=== PATIENT | female | born 1940 | race Caucasian/White ===

== ENCOUNTER 2016-10-08 08:04 | Outpatient (CLI) | payer MEDICARE ==
[2015-06-25 17:56] VITALS: BMI 21.8
[~2016-10-08 08:04] MED LIST: BAYER CHEWABLE81 MG PO; CALCIUM 600+D T1 TA1 PO; CARDIOTEK RX TA1 TA1 PO; COLACE100 MG PO; CORDARONE200 MG PO; COREG CR20 MG PO; CRESTOR20 MG PO; CYMBALTA60 MG PO; FLEXERIL10 MG PO; FOLTX TABLET1 TAB PO; GLUCOPHAGE500 MG PO; HYDROCHLOROTH12.5 M1 PO; K-DUR20 MEQ PO; LASIX40 MG PO; LATISSE3 ML TP; LISINOPRIL5 MG PO; LOPID600 MG PO; MIRALAX17 GM PO; MULTIPLE VITAMI1 TA1 PO; NEURONTIN 300300 MG PO; NITROSTAT0.4 MG SL; NORVASC10 MG PO; PLAVIX75 MG PO; PROBIOTIC1 EAC1 PO; PROTONIX40 MG PO; SIMBRINZA; VITAMIN C1000 MG PO; ZYLOPRIM100 MG PO
== END 2016-10-08 10:15 ==
LOC: D.MAMMO 08:04
DX: Z12.31 Encounter for screening mammogram for malignant neoplasm of breast (principal)

== ENCOUNTER → 2016-11-10 16:47 | Outpatient (CLI) | payer MEDICARE ==
[2015-06-25 17:56] VITALS: BMI 21.8
== END | disposition home or self-care (01) ==
LOC: D.MAMMO 13:30
DX: R92.8 Other abnormal and inconclusive findings on diagnostic imaging of breast (principal)

== ENCOUNTER 2017-03-08 15:07 | Emergency (ER) | payer MEDICARE ==
[2015-06-25 17:56] VITALS: BMI 21.8
== END 2017-03-08 16:52 | disposition home or self-care (01) ==
LOC: D.ER 15:07
DX: K59.00 Constipation, unspecified (principal); K56.41 Fecal impaction; I10 Essential (primary) hypertension

== ENCOUNTER 2017-08-27 17:41 | Emergency (ER) | payer MEDICARE ==
[~2017-08-27] VITALS: Ht 157.5 cm; Wt 58.6 kg
[2017-08-27 17:51] VITALS: Ht 157.5 cm; Wt 58.6 kg
[2017-08-27 19:28] LABS: BASOPHILS 0.3 % (0-2); HEMATOCRIT 36.5 % (36.0-48.0); HEMOGLOBIN 12.1 g/dL (12-16); IMMATURE GRANULOCYTES 0.4 % (0-5); MCH 30.2 pg (26.0-34.0); MCHC 33.2 g/dL (31.0-37.0); MEAN PLATELET VOLUME 10.6 fL (7.4-10.4); MONOCYTES 11.6 % (2-11); NEUTROPHILS 71.7 % (40-80); RBC 4.01 10x6/uL (4.00-5.40); RDW 13.3 % (11.5-14.5); WBC 6.9 10x3/uL (4.8-10.8)
[2017-08-27 19:29] LABS: PLATELET COUNT 154 10x3/uL (130-400)
[2017-08-27 19:37] LABS: ANION GAP 14.8 mmol/L (8-16); CALCIUM 9.3 mg/dL (8.5-10.1); CARBON DIOXIDE 27.7 mmol/L (21.0-32.0); CREATININE - SERUM 1.5 mg/dL (0.6-1.3); MAGNESIUM - SERUM 2.3 mg/dL (1.8-2.4); POTASSIUM - SERUM 3.5 mmol/L (3.5-5.1)
[2017-08-27 22:02] VITALS: BP 178/65
== END 2017-08-27 22:04 | disposition home or self-care (01) ==
LOC: D.ER 17:41
PROVIDERS: Emergency Medicine
DX: I10 Essential (primary) hypertension (principal); Z86.73 Personal history of transient ischemic attack (TIA), and cerebral infarction without residual deficits; H54.40 Blindness, one eye, unspecified eye; E11.9 Type 2 diabetes mellitus without complications; Z86.79 Personal history of other diseases of the circulatory system

== ENCOUNTER 2017-09-29 12:32 | Emergency (ER) | payer MEDICARE ==
[~2017-09-29] VITALS: Ht 157.5 cm; Wt 58.6 kg
[2017-09-29 12:39] VITALS: Ht 157.5 cm; Wt 58.6 kg
[2017-09-29 15:19] VITALS: BP 126/70
== END 2017-09-29 15:21 | disposition home or self-care (01) ==
LOC: D.ER 12:32
DX: R07.81 Pleurodynia (principal); S01.01XA Laceration without foreign body of scalp, initial encounter; W19.XXXA Unspecified fall, initial encounter; Y93.89 Activity, other specified; Y92.012 Bathroom of single-family (private) house as the place of occurrence of the external cause; M54.6 Pain in thoracic spine; E11.9 Type 2 diabetes mellitus without complications; I10 Essential (primary) hypertension

== ENCOUNTER → 2017-12-30 13:42 | Outpatient (CLI) | payer MEDICARE ==
[2017-09-29 12:39] VITALS: BMI 23.6
== END | disposition home or self-care (01) ==
LOC: D.MRI 13:42
DX: M54.12 Radiculopathy, cervical region (principal)

== ENCOUNTER 2018-03-09 08:00 | Outpatient (CLI) | payer MEDICARE ==
[2017-09-29 12:39] VITALS: BMI 23.6
== END 2018-03-09 09:00 | disposition home or self-care (01) ==
LOC: D.MAMMO 08:00
DX: Z12.31 Encounter for screening mammogram for malignant neoplasm of breast (principal)

== ENCOUNTER 2018-05-10 15:57 | Inpatient (IN) | payer MEDICARE ==
[~2018-05-10] VITALS: Ht 157.5 cm; Wt 59.4 kg
--- NOTE | ~2018-05-10 | HEMODYNAMI ---
PATIENT:JAMIE ANTOINE MEDICAL RECORD: [id number] : 38 LOCATION:[facility] D.2120 ADMISSION DATE: 05/10/18 Generatedon:05/11/201816:03 Patient name: JAMIE ANTOINE Patient #: [id number] SSN: DO B: 1940 Date of study: 05/11/2018 Page: Of Hemodynamic Procedure Report Patient Data Patient Demographics Procedure consent was obtained First Name: JAMIE Gender: Female Last Name: ELINA : 1940 Middle Initial: SARA Age: 78 year(s) Patient #: [id number] Race: Additional ID: [id number] Contact details [address]: [address] [place] [address] State: [place] City: [place] Zip code: [address] Past Medical History Allergies Allergen Reaction Date Comments Reported Other allergy 11/10/2014 Codeine, Morphine, Tape Adhesive tape 05/11/2018 Codeine 05/11/2018 Morphine 05/11/2018 Other allergy 05/11/2018 lisinopril Admission Admission Data Admission Date: 05/10/2018 Admission Time: 15:57 Room #: D.2120 Procedure Procedure Types Cath Procedure Diagnostic Procedure [facility] w/Coronaries Sedation Charges Moderate Sedation up to 15 minutes PCI Procedure Coronary Stent Coronary Stent Initial x2 Procedure Description Procedure Date Procedure Date: 05/11/2018 Procedure Start Time: 15:44 Procedure End Time: 16:03 Procedure Staff Name Function Sanjay Brand MD Performing Physician Marianela Nascimento RT Monitor Sonam Johnson RN Nurse Debi Goetz RT Scrub Nuria Mendez RT Scrub Coleen Jorgensen RN Griddle Attendant Procedure Data Cath Procedure Fluoroscopy Diagnostic fluoroscopy Total fluoroscopy Time: 4.5 time: 4.5 min min Diagnostic fluoroscopy Total fluoroscopy dose: 303 dose: 303 mGy mGy Contrast Material Contrast Material Type Amount (ml) Isovue 370 84 Entry Location Entry Primary Successful Side Size Upsize Upsize Entry Closure Caceres ccessful Closure Location (Fr) 1 (Fr) 2 (Fr) Remarks Device Remarks Radial Right 6 Fr Mechanical artery Short Compression Estimated blood loss: 10 ml Diagnostic catheters Device Type Used For End Catheter Placement DIAGNOSTIC Kemp 110cm 5 LV Angiography Fr catheter ([id number]) DIAGNOSTIC Kemp 110cm 5 Coronary Fr catheter ([id number]) Angiography DIAGNOSTIC Kemp 110cm 5 Right Coronary Fr catheter ([id number]) Angiography Procedure Complications No complications Procedure Medications Medication Administration Route Dosage 0.9% NaCl I.V. 100 ml/hr Oxygen etCO2 Nasal cannula 2 l/min Lidocaine 2% added to field 20 Heparin Flush Bag added to field 2 bags (1000units/500ml NS) Radial Cocktail added to field 1 syringe (Verapomil 2mg/Nitro 400mcg/Heparin 1500units) Versed I.V. 2 mg Fentanyl I.V. 25 mcg Versed I.V. 1 mg Fentanyl I.V. 25 mcg Heparin Bolus I.V. 4000 units Integrilin (Bolus I.V. 5 ml 2mg/ml) Plavix P.O. 600 mg Hemodynamics Rest Heart Rate: 69 (bpm) Snapshots Pre Cath Intra NCS Post Cath Vital Signs Time Heart Resp SPO2 etCO2 NIBP (mmHg) Rhythm Pain Sedation Rate (ipm) (%) (mmHg) Status Level (bpm) 15:11:52 79 14 98 32 188/94(150) NSR 0 (11) 10(A) , No pain 15:17:31 77 10 100 29.9 207/96(147) NSR 0 (11) 10(A) , No pain 15:21:56 67 13 99 32.2 161/80(124) NSR 0 (11) 10(A) , No pain 15:26:18 70 17 98 31.4 154/73(109) NSR 0 (11) 10(A) , No pain 15:30:38 66 17 96 32.6 145/72(113) NSR 0 (11) 10(A) , No pain 15:35:00 67 15 98 28.2 152/70(118) NSR 0 (11) 10(A) , No pain 15:39:24 61 15 97 33.7 153/76(122) NSR 0 (11) 10(A) , No pain 15:43:40 62 14 98 33.7 138/60(103) NSR 0 (11) 10(A) , No pain 15:48:42 70 15 96 12.7 143/67(107) NSR 0 (11) 9(A) , No pain 15:53:04 64 14 98 28.5 139/58(95) NSR 0 (11) 9(A) , No pain 15:57:26 64 13 100 34.4 153/64(114) NSR 0 (11) 10(A) , No pain 16:01:52 60 15 100 34.4 173/70(126) NSR 0 (11) 10(A) , No pain Medications Time Medication Route Dose Verified Delivered Reason Not es Effectiveness by by 15:11:05 0.9% NaCl I.V. 100 Sanjay Coleen used for ml/hr Sunday Jorgensen jewelry drill operator 15:11:13 Oxygen etCO2 2 l/min Sanjay Coleen used for Nasal Sunday Jorgensen procedure cannula RN 15:11:18 Lidocaine 2% added 20ml Sanjay Sanjay for local to vial Sunday Brand MD anesthetic field 15:11:24 Heparin Flush added 2 bags Sanjay Sanjay used for Bag to Sunday Brand MD procedure (1000units/500ml field NS) 15:11:32 Radial Cocktail added 1 Sanjay Sanjay used for (Verapomil to syringe Sunday Brand MD procedure 2mg/Nitro field 400mcg/Heparin 1500units) 15:36:29 Versed I.V. 2 mg Sanjay Coleen for sedation Sunday Jorgensen RN 15:36:41 Fentanyl I.V. 25 mcg Sanjay Coleen for sedation Sunday Jorgensen RN 15:44:16 Versed I.V. 1 mg Sanjay Coleen for sedation Sunday Jorgensen RN 15:44:20 Fentanyl I.V. 25 mcg Sanjay Coleen for sedation Sunday Jorgensen RN 15:51:38 Heparin Bolus I.V. 4000 Sanjay Coleen for martin ified units Sunday Jorgensen anticoagulation with Dr. BESSIE Brand 15:51:51 Integrilin I.V. 5 ml Sanjay Coleen for was melchor (Bolus 2mg/ml) Sunday Jorgensen anticoagulation 5mL RN 15:52:05 Plavix P.O. 600 mg Sanjay Coleen for Sunday Jorgensen antiplatelet RN therapy Procedure Log Time Note 14:40:27 Time tracking: Regular hours (M-F 7:00 - 5:00) 14:40:30 Marianela Counts RT(R) sent for patient. Start room use. 14:40:31 Plan of Care:Hemodynamics will remain stable., Cardiac rhythm will remain stable., Comfort level will be maintained., Respiratory function will remain adequate., Patient/ family verbilizes understanding of procedure., Procedure tolerated without complication., Recovers from procedure without complications.. 14:57:50 Patient received from PCU to CCL 1 Alert and oriented. Tansferred to table in Supine position. 14:57:51 Warm blankets applied, and kristie hugger turned on for patient comfort. 14:57:52 Correct patient and procedure confirmed by team. 14:57:53 Signed procedure consent form obtained from patient. 14:57:53 ECG and BP/O2 sat monitors applied to patient. 15:10:36 Vital chart was started 15:11:05 0.9% NaCl 100 ml/hr I.V. was administered by Coleen Jorgensen RN; used for procedure; 15:11:13 Oxygen 2 l/min etCO2 Nasal cannula was administered by Coleen Jorgensen RN; used for procedure; 15:11:18 Lidocaine 2% 20ml vial added to field was administered by Sanjay Brand MD; for local anesthetic; 15:11:24 Heparin Flush Bag (1000units/500ml NS) 2 bags added to field was administered by Sanjay Brand MD; used for procedure; 15:11:32 Radial Cocktail (Verapomil 2mg/Nitro 400mcg/Heparin 1500units) 1 syringe added to field was administered by Sanjay Brand MD; used for procedure; 15:13:20 Full Disclosure recording started 15:13:23 Rhythm: sinus rhythm 15:14:05 H&P Date Dictated: 05/11/2018 Within 30 days and on chart.. 15:14:06 Pre-procedure instructions explained to patient. 15:14:07 Pre-op teaching completed and patient verbalized understanding. 15:14:09 Family in patients room. 15:14:10 Patient NPO since Midnight. 15:14:19 Patient allergic to Adhesive tape 15:14:25 Patient allergic to Codeine 15:14:31 Patient allergic to Morphine 15:14:45 Patient allergic to Other allergylisinopril 15:14:51 Is the patient allergic to Iodine/contrast media? No. 15:14:56 Is patient on blood thinner?No 15:14:57 Patient diabetic? No. 15:15:01 Previous problem with sedation/anesthesia? No ? 15:15:02 Snore? No 15:15:03 Sleep apnea? No 15:15:04 Deviated septum? No 15:15:05 Opens mouth fully? Yes 15:15:05 Sticks out tongue? Yes 15:15:07 Airway obstruction? No ? 15:15:09 Dentures? No ? 15:16:06 Pre procedure: right dorsailis pedis pulse 2+ Normal; easily identifiable; not easily obliterated 15:16:08 Modified Severino's test Ulnar < 7 seconds 15:16:10 Patient pain scale 0/10 ?. 15:16:16 IV patent on arrival in left forearm with 0.9% NaCl at [facility]. 15:16:19 Lab results completed and on chart. 15:16:24 Right Radial & Right Groin area was prepped with chlora-prep and draped in sterile fashion 15:16:25 Alarms reviewed by R. N. 15:16:25 Sharps counted by scrub and verified by R.N. 15:16:30 ACIST Syringe (33025) opened to sterile field. 15:16:30 Bag Decanter (2002S) opened to sterile field. 15:16:31 Medline Cath Pack ([id number]) opened to sterile field. 15:16:31 DIAGNOSTIC WIRE .035 260cm J wire (329540) opened to sterile field. 15:16:32 ACIST Hand Control (96092) opened to sterile field. 15:16:32 ACIST Manifold (17226) opened to sterile field. 15:16:33 Tegaderm 4 x 4 (1626W) opened to sterile field. 15:24:10 Baseline sample Acquired. 15:31:24 Zero performed for pressure channel P1 15:35:57 Final Timeout: patient, procedure, and site verified with staff and physician. All members of the team are in agreement. 15:36:01 Right Radial site verified by team. 15:36:04 Fire Safety Assessment: A--An alcohol-based skin anteseptic being used preoperatively., C--Open oxygen or nitrous oxide is being used., D--An ESU, laser, or fiber-optic light is being used. 15:36:08 Physical assessment completed. ASA score P 2 - A patient with mild systemic disease as per Sanjay Brand MD. 15:36:11 Sedation plan: IV Moderate Sedation Medication:Versed, Fentanyl 15:36:29 Versed 2 mg I.V. was administered by Coleen Jorgensen RN; for sedation; 15:36:41 Fentanyl 25 mcg I.V. was administered by Coleen Jorgensen RN; for sedation; 15:44:16 Versed 1 mg I.V. was administered by Coleen Jorgensen RN; for sedation; 15:44:20 Fentanyl 25 mcg I.V. was administered by Coleen Jorgensen RN; for sedation; 15:44:21 Procedure started. 15:44:26 Local anesthetic to right radial artery with Lidocaine 2% by Sanjay Brand MD.INITIAL ACCESS ONLY 15:45:06 A 6 Fr Short sheath was inserted into the Right Radial artery 15:45:41 SHEATH 6FR Slender (80-1060) opened to sterile field. 15:46:05 TR BAND Standard ([id number]) opened to sterile field. 15:46:12 A DIAGNOSTIC Kemp 110cm 5 Fr catheter (383533) was advanced over the wire and used for LV Angiography. 15:47:26 LV gram done using DICK 15:47:32 EF : 65 % 15:47:39 Injector settings: Ml/sec: 7, Volume: 15, 15:47:45 A DIAGNOSTIC Kemp 110cm 5 Fr catheter (088659) was advanced over the wire and used for Coronary Angiography. 15:47:48 Use device set TAU PCI 15:47:54 INFLATOR Merit BasixCompak (YD9357) opened to sterile field. 15:47:58 CHOICE PT Extra Support 182cm wire ([id number]) opened to sterile field. 15:48:34 A DIAGNOSTIC Kemp 110cm 5 Fr catheter (197378) was advanced over the wire and used for Right Coronary Angiography. 15:48:51 Catheter removed. 15:49:12 GUIDE 6FR AR 2.0 catheter ([id number]) opened to sterile field. 15:49:39 GUIDE 6FR XB 3.5 catheter ([id number]) opened to sterile field. 15:50:33 6 Fr AR 2.0 guide catheter was inserted over the wire 15:50:41 CHOICE PT ES wire advanced. 15:51:38 Heparin Bolus 4000 units I.V. was administered by Coleen Jorgensen RN; for anticoagulation; verified with Dr. Brand 15:51:51 Integrilin (Bolus 2mg/ml) 5 ml I.V. was administered by Coleen Jorgensen RN; for anticoagulation; wasted 5mL 15:52:05 Plavix 600 mg P.O. was administered by Coleen Jorgensen RN; for antiplatelet therapy; 15:52:19 Place stent Inflation Number: 1 A CARROLL RX 2.25 x 12 stent ([id number]) was prepped and advanced across the 1st RPL. The stent was deployed at 17 JESICA for 0:05 (min:sec). 15:52:31 Stent catheter was removed intact over wire. 15:52:32 Wire removed. 15:52:33 Guide catheter removed. 15:54:08 6 Fr XB 3.5 guide catheter was inserted over the wire 15:54:58 Guide Catheter removed. unable to cannulate vessel. 15:55:46 GUIDE 6FR XBC 3 ([id number]) opened to sterile field. 15:56:53 6 Fr XBC 3.0 guide catheter was inserted over the wire 15:56:58 CHOICE PT ES wire advanced. 15:58:46 Place stent Inflation Number: 1 A CARROLL RX 2.75 x 34 stent ([id number]) was prepped and advanced across the Mid LAD. The stent was deployed at 17 JESICA for 0:05 (min:sec). 15:59:12 Stent catheter was removed intact over wire. 15:59:13 Wire removed. 15:59:13 Guide catheter removed. 15:59:23 Sheath removed intact; hemostasis achieved with Mechanical Compression to the Right Radial artery. 15:59:25 Procedure ended.(Physican Out) 15:59:36 Fluoroscopy time 04.50 minutes. 15:59:40 Fluoroscopy dose: 303 mGy 15:59:40 Flurop Dose total: 303 15:59:45 Contrast amount:Isovue 370 84ml. 15:59:46 Sharps counted by scrub and verified by R.N. 15:59:51 Insertion/operative site no bleeding no hematoma. 15:59:58 Post right radial artery:stable, clean and dry 16:00:00 Post Procedure Pulses reassessed and unchanged 16:00:02 Post-procedure physical assessment completed. ASA score P 2 - A patient with mild systemic disease as per Sanjay Brand MD. 16:00:04 Post procedure rhythm: unchanged. 16:00:08 Estimated blood loss: 10 ml 16:00:09 Post procedure instruction explained to patient.Patient verbalizes understanding. 16:00:10 Patient needs reinforcement of post procedure teaching. 16:00:51 Procedure type changed to Cath procedure, Diagnostic procedure, LHC, LHC w/Coronaries, Sedation Charges, Moderate Sedation up to 15 minutes, PCI procedure, Coronary Stent, Coronary Stent Initial x2 16:00:57 Procedure Complication : No complications 16:00:59 See physician's report for complete and final results. 16:02:46 Procedure and supply charges have been captured, reviewed, submitted and are correct. 16:03:13 Vital chart was stopped 16:03:16 Report given to PCU. 16:03:19 Patient transfered to PCU with Bed. 16:03:34 Procedure ended. 16:03:34 Full Disclosure recording stopped 16:03:37 End room use (Document Last) Intervention Summary Intervention Notes Time ActionType Lesion and Equipment Used Action# Pressure Duration Attributes 15:52:19 Place stent 1st RPL CARROLL RX 2.25 x 1 17 00:05 12 stent ([id number]) 15:58:46 Place stent Mid LAD CARROLL RX 2.75 x 1 17 00:05 34 stent ([id number]) Device Usage Item Name Manufacture Quantity Catalog Number Hospital Part Current M inimal Lot# / Charge Number Stock Stock Serial# Code ACIST Syringe Acist 1 75853 822684 175687 432657 2 0 (71217) Medical Systems Inc Bag Decanter Microtek 1 2001S 466496 40890 520021 5 () Medical Inc. Medline Cath Medline 1 [id number] 653616 10278 779857 5 Pack ([id number]) DIAGNOSTIC St Quint[place] 1 172314 849268 448648 474236 3 0 WIRE .035 260cm J wire (954899) ACIST Hand Acist 1 65700 391894 420399 051546 5 Control Medical (61739) Systems Inc ACIST Manifold Acist 1 52355 768452 781675 596410 5 (03242) Medical Systems Inc Tegaderm 4 x 4 3M 1 1626W 802990 842985 096409 5 (1626W) SHEATH 6FR Terumo 1 [id number] 153292 612705 778892 5 Slender (80-1060) TR BAND Terumo 1 [id number] 836778 467609 770424 4 0 Standard ([id number]) DIAGNOSTIC Terumo 1 40-5013 349665 481456 681606 5 Kemp 110cm 5 Fr catheter (684002) INFLATOR Merit Merit 1 KW9626 819406 675748 099669 1 5 [facility] (BY6845) CHOICE PT [place] 1 [id number] 103055 981811 952290 5 Extra Support Scientific 182cm wire (1569325Y2) GUIDE 6FR AR Medtronic 1 [id number] 686148 33992 610281 1 2.0 catheter ([id number]) GUIDE 6FR XB Cardinal 1 29911219 778512 669973 489808 2 3.5 catheter Health (25816543) CARROLL RX 2.25 x Medtronic 1 [id number] 366085 0162127 536081 5 [id number] 12 stent ([id number]) GUIDE 6FR XBC Cardinal 1 [id number] 051207 22408 991218 5 3 ([id number]) Health CARROLL RX 2.75 x Medtronic 1 [id number] 183181 3899602 766642 5 [id number] 34 stent ([id number]) Signature Audit [place] Stage Time Signature Unsigned Intra-Procedure 05/11/2018 Marianela 4:03:49 PM Counts RT(R) Signatures Monitor : Marianela Signature : Counts RT Date : Time : [facility] [address] [place] [address]
--- NOTE | 2018-05-10 16:50 | NUR ---
RECEIVED PT TO ROOM 2119 VIA W/C DIRECT ADMIT FROM DR HERRERA'S OFFICE C/O LT HIP FEELING COLD SKIN COOL TO TOUCH LT HIP TELEMETRY APPLIED SR RATE 73
[2018-05-10 17:43] LABS: BASOPHILS 0.3 % (0-2); EOSINOPHILS 2.4 % (0-7); HEMATOCRIT 35.5 % (36.0-48.0); HEMOGLOBIN 11.9 g/dL (12-16); IMMATURE GRANULOCYTES 0.1 % (0-5); LYMPHOCYTES 15.4 % (15-50); MCH 29.7 pg (26.0-34.0); MCHC 33.5 g/dL (31.0-37.0); MCV 88.5 fL (80.0-100.0); MEAN PLATELET VOLUME 10.8 fL (7.4-10.4); MONOCYTES 14.5 % (2-11); NEUTROPHILS 67.3 % (40-80); PLATELET COUNT 161 10x3/uL (130-400); RBC 4.01 10x6/uL (4.00-5.40); RDW 12.6 % (11.5-14.5); WBC 6.7 10x3/uL (4.8-10.8)
[2018-05-10 17:51] VITALS: BMI 23.8
[2018-05-10 18:07] LABS: ALBUMIN 3.8 g/dL (3.4-5.0); ALKALINE PHOSPHATASE 85 U/L (46-116); ALT (SGPT) 29 U/L (10-68); BILIRUBIN - TOTAL 0.28 mg/dL (0.2-1.3); CALC OSMOLALITY 284 mosm/kg (275-300); CALCIUM 9.1 mg/dL (8.5-10.1); CARBON DIOXIDE 25.6 mmol/L (21.0-32.0); CHLORIDE - SERUM 104 mmol/L (98-107); CREATININE - SERUM 1.3 mg/dL (0.6-1.3); GLUCOSE 106 mg/dL (74-106); POTASSIUM - SERUM 3.7 mmol/L (3.5-5.1); PROTEIN - SERUM 7.5 g/dL (6.4-8.2); SODIUM 142 mmol/L (136-145); UREA NITROGEN 18 mg/dL (7-18); eGFR NON AFRICAN AMERICAN 42 mL/min (90-120)
[2018-05-10 18:19] LABS: CKMB 1.4 U/L (0.0-3.6); CREATINE KINASE 117 UL (21-215); T4 THYROXINE 10.7 ug/dL (4.7-13.3); THYROID STIMULATING HORMONE 1.83 uIU/mL (0.36-3.74)
[2018-05-10 18:20] LABS: TROPONIN-I < 0.017 ng/mL (0.000-0.060)
[2018-05-10] MEDS ORDERED: BUTALB-APAP-CA1 EACH PO (18:23)
[2018-05-10] MEDS ORDERED: COREG 3.1253.125 MG PO (18:31)
[2018-05-10] MEDS ORDERED: CENTRUM SILVER1 EAC3 PO (18:33)
[2018-05-10] MEDS ORDERED: LISINOPRIL20 MG PO (18:33)
[2018-05-10] MEDS ORDERED: XALATAN 0.0052.5 ML EACH EYE (18:37)
[2018-05-10] MEDS ORDERED: TIMOPTIC 0.5 % O5 ML EACH EYE (18:38)
[2018-05-10] MEDS ORDERED: VITAMIN D250000 UNIT PO (18:39)
[2018-05-10] MEDS ORDERED: CARDIOTEK RX TA1 TA1 PO (18:51)
[2018-05-10 19:39] LABS: APPEARANCE CLEAR (CLEAR); BILIRUBIN NEGATIVE (NEGATIVE); COLOR YELLOW (YELLOW); GLUCOSE NEGATIVE (NEGATIVE); KETONE NEGATIVE (NEGATIVE); NITRITE NEGATIVE (NEGATIVE); PROTEIN 1+ mg/dL (NEGATIVE); SPECIFIC GRAVITY 1.015 (1.005-1.020); UROBILINOGEN NORMAL (NORMAL)
[2018-05-10 19:40] LABS: WHITE CELLS - URINE 0-5 /hpf (0-5)
[2018-05-10 19:41] LABS: BACTERIA FEW /hpf (NONE SEEN); EPITHELIAL CELLS OCC /hpf (0-5); RED CELLS - URINE 0-5 /hpf (0-5)
--- NOTE | 2018-05-10 20:06 | NUR ---
INITIAL ROUNDS AND ASSESSMENT. PT STILL NEEDING IV PLACEMENT. GARCIA PATENT TO BEDSIDE DRAIN BAG. NONLABORED RESPIRATIONS ON ROOM AIR. MONITOR AND CPOC.
--- NOTE | 2018-05-10 20:30 | NUR ---
SPOKE WITH PATIENT ABOUT NEEDING TO SITE AN IV FOR HER TO RECIEVE IV FLUIDS. PT SAID NO. THAT SHE HAD BEEN STUCK ENOUGH AND THE ONLY WAY SHE WAS GOING TO BE STUCK AGAIN WAS IF SHE WAS "ASLEEP". EXPLAINED TO PATIENT THAT NURSE WOULD STILL HAVE TO LET HER KNOW AN IV WAS BEING STARTED BEFORE STICKING HER IN IN HER SLEEP. PT SAID "NO, I MUST BE ASLEEP AND CAN'T FEEL ANYTHING AND NO OTHER WAY ARE YOU GOING TO STICK ME! "
[2018-05-10 21:03] VITALS: BP 197/70
--- NOTE | 2018-05-10 21:11 | NUR ---
PHONE CALL FROM SON SAYING THAT HE SPOKE WITH HIS MOTHER AND SHE IS COLD AND WANTS HER EYEDROPS. WENT TO PT'S ROOM. REPOSITIONED HER, ADMINISTERED HER EYES DROPS FROM HER HOME MEDS. PT ALSO WANTING A WARM BLANKET, WHICH WAS PROVIDED. SHE ALSO WANTS FIOROCET AT BEDTIME, SAYING SHE ROUTINELY TAKES THIS MED. EXPLAINED TO PATIENT THAT FIORECET IS USUALLY GIVEN FOR MIGRAINES. PT STATES TO TELL THE DOCTOR SHE TAKES IT EVERY NIGHT FOR HEADACHES. WILL HAVE TO PAGE LISA PARSON WAREHOUSE ATTENDANT.
--- NOTE | 2018-05-10 21:54 | NUR ---
PAGE TO EB SORIANO APN TO REQUEST PT'S NEEDED FIORECET FOR BEDTIME.
--- NOTE | 2018-05-10 22:00 | NUR ---
SPOKE AGAIN WITH PATIENT ABOUT HER BP BEING ELEVATED AND THEIR IS AN ORDER FOR IV BP MEDICATION. PT AGAIN SAID THAT SHE WOULD NOT BE STUCK FOR AN IV OR TO EVEN RECIEVE BP MEDS. WILL CONTINUE TO MONITOR.
--- NOTE | 2018-05-10 22:19 | NUR ---
CALL TO AND RETURN CALL FROM EB SORIANO AND ORDER RECIEVED FOR PT TO HAVE HER HOME MED OF FIOROCET. ORDER PLACED IN COMPUTER. VERIFIED BY PHARMACY AND WITHIN 10MINUTES AT PATIENTS BEDSIDE WITH HER FIORECET. PT NOW C/O BEING TOO HOT AND SHEETS TOO SCRATCHY. ALL HER SHEETS WERE PREVIOUSLY STRAIGHTENED OUT AND A WARM BLANKET PLACED ON HER. NOW BLANKET IS REMOVED AND COVERS STRAIGHTENED AGAIN. GAVE PT HER FIOROCET X 2 AND AFTER SHE TOOK THEM SHE BEGAN YELLING "OH, OH, OH!" AND SAYING SHE WAS EXTREMELY DIZZY AND FELT LIKE SHE WAS FALLING. EXPLAINED TO PATIENT THAT SHE IS IN HER BED AND LAYING AGAINST HER PILLOWS SO SHE CANNOT FALL. PT THEN BEGAN TO RELATE THAT HER SISTER YESTERDAY AND ANOTHER FAMILY MEMBER IN THIS HOSPITAL IN SEPTEMBER. CALMED PT DOWN. DIMMED LIGHTS. SHE NOW APPEARS TO BE RESTING COMFORTABLY. CALL LIGHT IN REACH. ROOM TEMP PLACED ON 78 DEGREES AT PT REQUEST.
[2018-05-11 01:03] VITALS: BP 139/78
--- NOTE | 2018-05-11 04:36 | NUR ---
TELEMETRY SR 61. PT RESTING IN BED. BP STILL UP AND PT STILL REFUSING IV TO BE SITED.
--- NOTE | 2018-05-11 04:54 | NUR ---
CURRENT BP 146/57. CONTINUE TO MONITOR.
[2018-05-11 06:21] VITALS: BP 146/57
[2018-05-11 06:52] LABS: BASOPHILS 0.1 % (0-2); EOSINOPHILS 1.9 % (0-7); HEMATOCRIT 33.3 % (36.0-48.0); HEMOGLOBIN 11.2 g/dL (12-16); IMMATURE GRANULOCYTES 0.1 % (0-5); LYMPHOCYTES 20.8 % (15-50); MCH 29.8 pg (26.0-34.0); MCHC 33.6 g/dL (31.0-37.0); MCV 88.6 fL (80.0-100.0); MEAN PLATELET VOLUME 11.1 fL (7.4-10.4); NEUTROPHILS 66.1 % (40-80); PLATELET COUNT 167 10x3/uL (130-400); RBC 3.76 10x6/uL (4.00-5.40); RDW 12.6 % (11.5-14.5); WBC 7.6 10x3/uL (4.8-10.8)
[2018-05-11 07:11] LABS: ALBUMIN 3.4 g/dL (3.4-5.0); ANION GAP 14.8 mmol/L (8-16); BILIRUBIN - TOTAL 0.2 mg/dL (0.2-1.3); CALCIUM 8.9 mg/dL (8.5-10.1); CARBON DIOXIDE 25.7 mmol/L (21.0-32.0); CREATININE - SERUM 1.5 mg/dL (0.6-1.3); POTASSIUM - SERUM 3.5 mmol/L (3.5-5.1); PROTEIN - SERUM 6.8 g/dL (6.4-8.2)
[2018-05-11 08:34] VITALS: Ht 157.5 cm; Wt 59.4 kg
[2018-05-11 09:06] VITALS: BP 187/59
--- NOTE | 2018-05-11 10:33 | NUR ---
ALERT AND ORIENTED X4. SITTING UP IN BED. SPOUSE AT BEDSIDE. REFUSE IV SITE. PATIENT STATES, "YOU HAVE TO SEDATE ME BEFORE STARTING AN IV." CONSENTS FOR PULVERIZER TENDER SIGNED ON CHART. CONTINUE PLAN OF CARE AND SAFETY PRECAUTIONS.
--- NOTE | 2018-05-11 14:45 | NUR ---
ALERT AND ORIENTED X4. LAYING IN BED. AGREES TO IV. IV 22G LT FA SUCCESSFUL X2 ATTEMPTS. PREOP FOR PREPRESS TECHNICIAN COMPLETE. TAKEN TO PREPRESS TECHNICIAN VIA BED. CONTINUE PLAN OF CARE AND SAFETY PRECAUTIONS.
--- NOTE | 2018-05-11 16:10 | NUR ---
ARRIVE BACK TO ROOM VIA BED FROM OFFICE AUTOMATION CLERK. SPOUSE AT BEDSIDE. RT WRIST DRESSING CLEAN DRY INTACT. FREE FROM BLEEDING. FREE FROM HEMATOMA. BP-212/80, HR-58 SINUS ORION. PRN APPRESOLINE ADMINISTERED ORDERED. CONTINUE TO MONITOR. CONTINUE PLAN OF CARE AND SAFETY PRECAUTIONS.
[2018-05-11 19:11] VITALS: BP 210/81
--- NOTE | 2018-05-11 19:30 | NUR ---
RESUMING PATIENT CARE. WHEN DOING PATIENT ASSESSMENT. PATIENT HAS TAKEN HER TR BAND OFF RIGHT WRIST. PATIENT HAS BRUISING TO HER HAND AND WRIST. PATIENT STATED SHE DIDN'T KNOW WHAT IT WAS AND TOOK IT OFF. CALLED AND SPOKE WITH DR. ESPINOZA, NO NEW ORDERS GIVEN.
[2018-05-11 22:27] VITALS: BP 131/54
--- NOTE | 2018-05-12 03:12 | NUR ---
PATIENT CONFUSED REFUSING TO WEAR CAPTAIN/AIRLINE PILOT.
--- NOTE | 2018-05-12 04:01 | NUR ---
PATIENT CONFUSED PULLED OUT IV. REFUSES TO ALLOW ANOTHER ONE TO BE PLACED.
[2018-05-12 05:44] VITALS: BP 208/85
[2018-05-12 06:23] LABS: BASOPHILS 0.1 % (0-2); EOSINOPHILS 2.4 % (0-7); HEMOGLOBIN 11.2 g/dL (12-16); IMMATURE GRANULOCYTES 0.3 % (0-5); LYMPHOCYTES 14.8 % (15-50); MCH 29.9 pg (26.0-34.0); MCHC 33.9 g/dL (31.0-37.0); MCV 88.2 fL (80.0-100.0); MEAN PLATELET VOLUME 11.2 fL (7.4-10.4); MONOCYTES 13.7 % (2-11); NEUTROPHILS 68.7 % (40-80); PLATELET COUNT 153 10x3/uL (130-400); RBC 3.74 10x6/uL (4.00-5.40); RDW 12.8 % (11.5-14.5); WBC 7.9 10x3/uL (4.8-10.8)
[2018-05-12 06:46] LABS: ALBUMIN 3.4 g/dL (3.4-5.0); ANION GAP 17.5 mmol/L (8-16); BILIRUBIN - TOTAL 0.3 mg/dL (0.2-1.3); CALCIUM 8.7 mg/dL (8.5-10.1); CARBON DIOXIDE 23.3 mmol/L (21.0-32.0); CREATININE - SERUM 1.3 mg/dL (0.6-1.3); POTASSIUM - SERUM 3.8 mmol/L (3.5-5.1); PROTEIN - SERUM 6.4 g/dL (6.4-8.2)
[2018-05-12 07:47] VITALS: BP 184/58
[2018-05-12 11:26] VITALS: BP 155/64
--- NOTE | 2018-05-12 13:40 | NUR ---
ALERT AND ORIENTED WITH INTERMITTENT SITUATIONAL CONFUSION. SPOUSE AT BEDSIDE. ASSIST UP TO CHAIR. GARCIA DRAINING BY GRAVITY. GARCIA RESECURED TO INNER LT THIGH. SINUS RHYTHM ON TELEMETRY. DENIES ANY OTHER NEEDS. CONTINUE PLAN OF CARE AND SAFETY PRECAUTIONS.
[2018-05-12] MEDS ORDERED: PLAVIX75 MG PO (14:58)
[2018-05-12 15:03] VITALS: BP 148/61
--- NOTE | 2018-05-12 16:34 | MORECARE ---
CASE MANAGEMENT DISCHARGE SUMMARY PATIENT: JAMIE ANTOINE UNIT: [id number] ADM DATE: 05/10/18 AGE: 78 : 39 SEX: F ROOM/BED: D.6906 AUTHOR: CATHY,DOC PHYSICIAN: REFERRING PHYSICIAN: EVY HERRERA MD DATE OF SERVICE: 05/12/18 Discharge Plan Patient Name: JAMIE ANTOINE Facility: [facility]:[place] : 1940 Planned Disposition: Home Anticipated Discharge Date: 05/12/18 Discharge Date: Expected LOS: 2 Initial Reviewer: [email or web address] Initial Review Date: 05/12/2018 Generated: 05/12/18 5:33 pm Comments DCP- Discharge Planning Updated by [email or web address]: Guille Palma on 05/12/18 3:[address] Patient Name: JAMIE ANTOINE Admission Status: Urgent Accout number: [id number] Admission Date: 05-10-2018 : 1940 Admission Diagnosis:ANGINA PECTORIS, UNSPECIFIED Attending: EVY HERRERA Current LOS: 2 Anticipated DC Date: 05-12-2018 Planned Disposition: Home Primary Insurance: [facility] [employer] [employer] Discharge Planning Comments: CM RECEIVED DISCHARGE ORDER, MET WITH PT AND FRIEND IN ROOM TO DISCUSS DISCHARGE PLANNING AND NEEDS. JAMIE ANTOINE provided verbal consent to discuss current and ongoing needs with/in the presence of: FRIEND HILARIA. PT REPORTS LIVING AT HOME INDEPENDENTLY WITH HER FRIEND. PT HAS NO MEDICAL EQUIPMENT AND ALREADY HAS HOUSECALLS COMING OUT. CM DISCUSSED AVAILABILITY OF HOME HEALTH, REHAB SERVICES AND MEDICAL EQUIPMENT. PT STATES SHE WANTS CM TO TELL THE DOCTOR SHE WANTS TO STAY. CM ASKED IF PT HAS TALKED TO THE DOCTOR, PT STATES YES. CM ASKED WHY PT WANTS TO STAY IN THE HOSPITAL. PT REPORTS FEAR OF FALLING. CM DICUSSED AVAILABILITY OF HOME HEALTH, MEDICAL EQUIPMENT AND REHAB SERVICES. PT DENIES NEED OF HOME HEALTH, PT DOES NOT WANT REHAB PLACEMENT. PT SATES SHE WILL GO HOME. PT DENIES DISCHARGE NEEDS. PT'S FRIEND STATES HE IS NOT SAYING ANYTHING AND IS READY TO TAKE PT HOME NOW. CM LEFT PT WITH HOME HEALTH AGENCY LISTING WITH CM CONTACT NUMBER AND OFFERED TO ASSIST WITH HOME HEALTH ARRANGEMENT IF PT CHANGED MIND. CM ALSO DISCUSSED HOW TO DISCUSS NEEDS WITH HOUSECALLS PROGRAM DIRECTOR/MUSIC DIRECTOR FOR FURTHER ASSISTANCE WITH ARRANGING SERVICES. PT INSISTED THAT CM GO NOW AND TALK TO HER NURSE TO MAKE SURE THINGS ARE DONE FOR HER. CM SPOKE TO BEDSIDE NURSE WHO INFORMED CM THAT SHE IS WAITING ON RADIAL ARM SAW OPERATOR NURSE TO COMPLETE DISCHARGE. CM NOTIFIED RADIAL ARM SAW OPERATOR NURSE. Color Artist: Guille Palma DCPIA - Discharge Planning Initial Assessment Updated by [email or web address]: Guille Palma on 05/12/18 4:27 pm * Is the patient Alert and Oriented? Yes * How many steps to enter\exit or inside your home? NONE * PCP DR. HERRERA * Pharmacy [facility] ON [address] * Preadmission Environment Home with Family * ADLs Independent * Equipment None * Other Equipment NO MEDICAL EQUIPMENT PROVIDER PREFERENCE * List name and contact numbers for known caregivers / representatives who currently or will assist patient after discharge: HILARIA ARIK, FRIEND, * Verbal permission to speak to the caregivers and representatives has been obtained from the patient. Yes * Community resources currently utilized Other * Please name any agencies selected above. [facility] * Additional services required to return to the preadmission environment? No * Can the patient safely return to the preadmission environment? Yes * Has this patient been hospitalized within the prior 30 days at any hospital? No Patient Name: JAMIE ANTOINE Page [id number] at 1634 All edits/amendments must be made on the electronic document DICTATION DATE: 05/12/18 1633 FLIGHT SERVICE SPECIALIST: ALHAJI 05/12/18 163 RPT#: [id number] DC DATE: STATUS: ADM IN [facility] [address] [place] [address] END OF REPORT
--- NOTE | 2018-05-12 17:35 | NUR ---
ALERT AND ORIENTED WITH SITUATIONAL CONFUSION. FAMILY AT BEDSIDE. DISCHARGE INSTRUCTIONS GIVEN VERBALLY AND WRITTEN. DISCHARGE PAPERS SIGNED ON CHART. NO IV. WRITTEN PRESCRIPTIONS PROVIDED. ESCORT TO RIDE VIA WHEELCHAIR. REMAINS FREE FROM INJURY.
--- NOTE | 2018-05-18 11:18 | OP ---
PATIENT NAME: JAMIE ANTOINE MEDICAL RECORD: [id number] :38 LOCATION:D.M2 D.2120 ADMISSION DATE:05/10/18 SURGEON: NAVNEET ESPINOZA MD DATE OF OPERATION: 05/11/2018 DATE OF SERVICE: 05/11/2018 PROCEDURES: 1. PTCA stent RCA. 2. PTCA stent LAD. 3. Left heart catheterization. 4. Selective coronary angiography. 5. Left ventriculogram. INDICATION: Angina and coronary artery disease. PROCEDURE IN DETAIL: After informed consent was obtained and after a detailed description of risks, benefits as well as alternative therapies, the patient elected to proceed with angiogram and angioplasty. The right radial area was prepped and draped in normal sterile fashion. Right radial artery was cannulated via modified Seldinger technique with the placement of 6-Dominican sheath. All catheters exchanged through this sheath. FINDINGS: Left ventriculogram was performed in standard 30-degree DICK view, reveals good cardiac wall motion throughout all segments. Overall ejection fraction estimated at 60%. SELECTIVE CORONARY ANGIOGRAPHY: 1. Left main is with no significant angiographic disease. 2. Left anterior descending has previously placed stents proximally with greater than 80% in-stent restenosis. 3. Left circumflex has moderate irregularities, but no flow-limiting stenosis. 4. The right coronary has previously placed stents proximal and distal. The distal stent has up to 90% in-stent restenosis. PTCA STENT OF THE DISTAL RCA: The stent used was a 2.25 x 12 mm Crocheron. Result was 0% residual stenosis. PTCA STENT OF THE LAD: The stent used is a 2.75 x 34 mm Crocheron. Result was 0% residual stenosis. OVERALL IMPRESSION: Successful percutaneous transluminal coronary angioplasty stent of the right coronary artery and left anterior descending, both going from greater than 80% in-stent restenosis to 0% residual. TRANSINT:[id number] Voice Confirmation ID: [id number] DOCUMENT ID: [id number] OPERATIVE REPORT [id number] JAMIE ANTOINE JEFFREY MD at 1118 CC: [id number] DICTATION DATE: 05/11/18 1607 SPICE MIXER: 05/12/18 0157 DIS IN 05/12/18 [place] [address]
== END 2018-05-12 17:37 | disposition home or self-care (01) | DRG 246 ==
LOC: D.M2 15:57
PROVIDERS: Family Medicine; Internal Medicine Interventional Cardiology; ADMIT Family Medicine
PROC: B2111ZZ Fluoroscopy of Multiple Coronary Arteries using Low Osmolar Contrast (ICD-10-PCS; 2018-05-11)
PROC: B2151ZZ Fluoroscopy of Left Heart using Low Osmolar Contrast (ICD-10-PCS; 2018-05-11)
PROC: 027135Z Dilation of Coronary Artery, Two Arteries with Two Drug-eluting Intraluminal Devices, Percutaneous Approach (ICD-10-PCS; principal; 2018-05-11 14:40)
PROC: 4A023N7 Measurement of Cardiac Sampling and Pressure, Left Heart, Percutaneous Approach (ICD-10-PCS; 2018-05-11 14:40)
DX: I25.119 Atherosclerotic heart disease of native coronary artery with unspecified angina pectoris (principal); G93.41 Metabolic encephalopathy; M48.58XA Collapsed vertebra, not elsewhere classified, sacral and sacrococcygeal region, initial encounter for fracture; I10 Essential (primary) hypertension; E11.40 Type 2 diabetes mellitus with diabetic neuropathy, unspecified; E11.51 Type 2 diabetes mellitus with diabetic peripheral angiopathy without gangrene; I48.91 Unspecified atrial fibrillation; R55 Syncope and collapse; D32.0 Benign neoplasm of cerebral meninges; Z86.73 Personal history of transient ischemic attack (TIA), and cerebral infarction without residual deficits

== ENCOUNTER 2018-05-22 16:02 | Emergency (ER) | payer MEDICARE ==
[~2018-05-22] VITALS: Ht 157.5 cm; Wt 54.5 kg
[~2018-05-22 16:02] MED LIST changes: +BUTALB-APAP-CA1 EACH PO; +CENTRUM SILVER1 EAC3 PO; +COREG 3.1253.125 MG PO; +LISINOPRIL20 MG PO; +TIMOPTIC 0.5 % O5 ML EACH EYE; +VITAMIN D250000 UNIT PO; +XALATAN 0.0052.5 ML EACH EYE
[2018-05-22 16:14] VITALS: Ht 157.5 cm; Wt 54.5 kg
[2018-05-22 16:56] LABS: COLOR YELLOW (YELLOW)
[2018-05-22 16:57] LABS: APPEARANCE CLOUDY (CLEAR); BILIRUBIN NEGATIVE (NEGATIVE); GLUCOSE NEGATIVE (NEGATIVE); KETONE NEGATIVE (NEGATIVE); NITRITE NEGATIVE (NEGATIVE); PROTEIN 2+ mg/dL (NEGATIVE); RED CELLS - URINE RARE /hpf (0-5); UROBILINOGEN NORMAL (NORMAL); WHITE CELLS - URINE 0-5 /hpf (0-5)
[2018-05-22 17:21] LABS: BASOPHILS 0.3 % (0-2); EOSINOPHILS 0.4 % (0-7); HEMOGLOBIN 10.8 g/dL (12-16); IMMATURE GRANULOCYTES 0.1 % (0-5); LYMPHOCYTES 14.6 % (15-50); MCH 29.9 pg (26.0-34.0); MCHC 33.8 g/dL (31.0-37.0); MCV 88.6 fL (80.0-100.0); MONOCYTES 13.6 % (2-11); RBC 3.61 10x6/uL (4.00-5.40); WBC 7.3 10x3/uL (4.8-10.8)
[2018-05-22 17:24] LABS: PLATELET COUNT 236 10x3/uL (130-400)
[2018-05-22 17:39] LABS: ALKALINE PHOSPHATASE 73 U/L (46-116); ALT (SGPT) 28 U/L (10-68); BILIRUBIN - TOTAL 0.41 mg/dL (0.2-1.3); CALC OSMOLALITY 292 mosm/kg (275-300); CARBON DIOXIDE 25.2 mmol/L (21.0-32.0); CHLORIDE - SERUM 104 mmol/L (98-107); CREATININE - SERUM 1.8 mg/dL (0.6-1.3); GLUCOSE 109 mg/dL (74-106); POTASSIUM - SERUM 3.8 mmol/L (3.5-5.1); PROTEIN - SERUM 7.2 g/dL (6.4-8.2); SODIUM 142 mmol/L (136-145); UREA NITROGEN 37 mg/dL (7-18); eGFR NON AFRICAN AMERICAN 29 mL/min (90-120)
[2018-05-22 17:48] LABS: UDS - AMPHET NEGATIVE QUAL (NEGATIVE); UDS - BARB POSITIVE QUAL (NEGATIVE); UDS - BENZO POSITIVE QUAL (NEGATIVE); UDS - COCAINE NEGATIVE QUAL (NEGATIVE); UDS - OPIATE NEGATIVE QUAL (NEGATIVE); UDS - PCP NEGATIVE QUAL (NEGATIVE); UDS - THC NEGATIVE QUAL (NEGATIVE)
[2018-05-22 17:51] LABS: CKMB 2.4 U/L (0.0-3.6); CREATINE KINASE 187 UL (21-215); THYROID STIMULATING HORMONE 2.15 uIU/mL (0.36-3.74); TROPONIN-I 0.017 ng/mL (0.000-0.060)
[2018-05-22 19:27] VITALS: BP 165/89
== END 2018-05-22 19:28 | disposition home or self-care (01) ==
LOC: D.ER 16:02
PROVIDERS: Family Medicine
DX: R41.0 Disorientation, unspecified (principal); R44.1 Visual hallucinations; Z95.5 Presence of coronary angioplasty implant and graft; E11.9 Type 2 diabetes mellitus without complications; I10 Essential (primary) hypertension; I25.10 Atherosclerotic heart disease of native coronary artery without angina pectoris

== ENCOUNTER 2018-12-21 17:42 | Inpatient (IN) | payer MEDICARE ==
[~2018-12-21] VITALS: Ht 157.5 cm; Wt 52.2 kg
--- NOTE | 2018-12-21 19:00 | NUR ---
RECEIVED PT FROM DR PRATT DIRECT ADMIT PER W/C ACCOMPANIED BY SIG OTHER. PT IS ALERT AND ORIENTED TO SELF, PLACE AND SITUATION BUT CONFUSED TO TIME. RT FOOT IS RED, WARM AND SWOLLEN. BRUISES NOTED TO BUE AND BLE. GEN WEAKNESS NOTED. 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 LIVES WITH SIG OTHER WHO STATES SHE HAS BEEN CONFUSED AND WAS HALLUCINATING YESTERDAY AND CALLED THE POLICE BECAUSE SHE THOUGHT PEOPLE WERE IN HER YARD AND NOBODY WAS THERE. SPEECH CLEAR. NO DISTRESS. BED ALARM IN USE FOR PT SAFETY. CL IN REACH
[2018-12-21 19:50] LABS: BASOPHILS 0.3 % (0-2); EOSINOPHILS 1.3 % (0-7); HEMATOCRIT 29.3 % (36.0-48.0); HEMOGLOBIN 9.5 g/dL (12-16); IMMATURE GRANULOCYTES 0.1 % (0-5); LYMPHOCYTES 12.6 % (15-50); MCH 28.5 pg (26.0-34.0); MCHC 32.4 g/dL (31.0-37.0); MEAN PLATELET VOLUME 10.1 fL (7.4-10.4); MONOCYTES 12.7 % (2-11); RBC 3.33 10x6/uL (4.00-5.40); RDW 13.2 % (11.5-14.5); WBC 7.2 10x3/uL (4.8-10.8)
[2018-12-21 20:06] LABS: ALBUMIN 3.3 g/dL (3.4-5.0); ANION GAP 13.1 mmol/L (8-16); BILIRUBIN - TOTAL 0.33 mg/dL (0.2-1.3); CALCIUM 8.8 mg/dL (8.5-10.1); CARBON DIOXIDE 29.5 mmol/L (21.0-32.0); CREATININE - SERUM 1.8 mg/dL (0.6-1.3); POTASSIUM - SERUM 3.6 mmol/L (3.5-5.1); PROTEIN - SERUM 6.5 g/dL (6.4-8.2)
[2018-12-21 20:31] LABS: PLATELET COUNT 178 10x3/uL (130-400)
--- NOTE | 2018-12-21 21:35 | NUR ---
16 FR GARCIA CATH INSERTED PER STERILE TECHNIQUE WITH IMMED RETURN OF CLEAR YELLOW URINE. PT TERESSA WELL.
--- NOTE | 2018-12-21 23:05 | NUR ---
IV STARTED AFTER ATTEMPT X3 TO RT FOREARM WITH 22G. NS @ 40 MLHR INFUSING WITHOUT DIFF. ROCEPHIN GIVEN AT THIS TIME. TERESSA WELL.
[2018-12-22 01:02] VITALS: BP 173/94
[2018-12-22 01:11] VITALS: Ht 157.5 cm; Wt 52.2 kg
--- NOTE | 2018-12-22 03:48 | NUR ---
HAS RESTED WELL TONIGHT. NO DISTRESS. RESP EVEN AND NONLABORED. CL IN REACH. BED ALARM IN USE FOR PT SAFETY.
[2018-12-22 04:58] VITALS: BP 160/58
[2018-12-22 06:22] LABS: APPEARANCE CLEAR (CLEAR); BILIRUBIN NEGATIVE (NEGATIVE); COLOR STRAW (YELLOW); GLUCOSE NEGATIVE (NEGATIVE); KETONE NEGATIVE (NEGATIVE); NITRITE NEGATIVE (NEGATIVE); PROTEIN NEGATIVE (NEGATIVE); SPECIFIC GRAVITY 1.015 (1.005-1.020); UROBILINOGEN NORMAL (NORMAL)
[2018-12-22 06:53] LABS: % SATURATION 12 % (15-55); IRON 44 ug/dl (35-150); TOTAL IRON BIND CAPACITY 353 ug/dl (260-445); UNSAT IRON BIND CAPACITY 309 ug/dl (150-375)
[2018-12-22 06:58] LABS: BASOPHILS 0.2 % (0-2); EOSINOPHILS 1.8 % (0-7); HEMATOCRIT 28.3 % (36.0-48.0); HEMOGLOBIN 9.3 g/dL (12-16); IMMATURE GRANULOCYTES 0.2 % (0-5); LYMPHOCYTES 19.5 % (15-50); MCH 28.6 pg (26.0-34.0); MCHC 32.9 g/dL (31.0-37.0); MCV 87.1 fL (80.0-100.0); MEAN PLATELET VOLUME 10.1 fL (7.4-10.4); MONOCYTES 14.6 % (2-11); NEUTROPHILS 63.7 % (40-80); PLATELET COUNT 166 10x3/uL (130-400); RBC 3.25 10x6/uL (4.00-5.40); RDW 13.1 % (11.5-14.5); WBC 5.6 10x3/uL (4.8-10.8)
[2018-12-22 07:14] LABS: FERRITIN 31 ng/mL (3-244); MAGNESIUM - SERUM 1.9 mg/dL (1.8-2.4)
[2018-12-22 08:07] LABS: APTT 33.5 SECONDS (22.8-39.4); INR 1.27 (0.85-1.17); PROTIME 15.3 SECONDS (11.6-15.0)
[2018-12-22 08:08] LABS: D-DIMER-QUANTITATIVE 0.37 ug/mLFEU (0.20-0.54)
[2018-12-22 08:45] VITALS: BP 156/67
[2018-12-22 10:15] LABS: ALBUMIN 3.2 g/dL (3.4-5.0); ANION GAP 11.4 mmol/L (8-16); BILIRUBIN - TOTAL 0.33 mg/dL (0.2-1.3); CALCIUM 8.6 mg/dL (8.5-10.1); CREATININE - SERUM 1.5 mg/dL (0.6-1.3); POTASSIUM - SERUM 3.4 mmol/L (3.5-5.1); PROTEIN - SERUM 6.4 g/dL (6.4-8.2)
[2018-12-22 12:51] VITALS: BP 118/56
[2018-12-22 14:41] LABS: CKMB 0.9 U/L (0.0-3.6); CREATINE KINASE 70 UL (21-215); TROPONIN-I < 0.017 ng/mL (0.000-0.060)
--- NOTE | 2018-12-22 18:45 | NUR ---
PATIENT IN BED WITH IV AND GARCIA INTACT. NOC OMPLAINTS OR SIGNS OF DISTRESS. FAMILY AT BEDSIDE. CALL LIGHT WITHIN REACH.
[2018-12-22 19:52] LABS: CKMB 0.7 U/L (0.0-3.6); CREATINE KINASE 61 UL (21-215)
[2018-12-22 19:54] LABS: TROPONIN-I < 0.017 ng/mL (0.000-0.060)
[2018-12-22 21:22] VITALS: BP 147/52
--- NOTE | 2018-12-22 22:50 | NUR ---
A&O X 4. SUPINE IN BED. DENIES PAIN. 1UNIT PRBC VERIFIED AND SPIKED BY RN. NO IMMEDIATE S/SX OF DISTRESS. PT INFORMED OF S/SX TO REPORT. WILL CONTINUE TO MONITOR
[2018-12-23 01:14] VITALS: BP 176/71
[2018-12-23 02:06] LABS: CKMB 0.9 U/L (0.0-3.6); CREATINE KINASE 63 UL (21-215); TROPONIN-I < 0.017 ng/mL (0.000-0.060)
--- NOTE | 2018-12-23 02:55 | NUR ---
I have reviewed this patient and I concur with the Shift Assessment completed by the Licensed Practical Nurse today this shift.
[2018-12-23 07:00] LABS: BASOPHILS 0.1 % (0-2); EOSINOPHILS 1.9 % (0-7); IMMATURE GRANULOCYTES 0.1 % (0-5); LYMPHOCYTES 13.7 % (15-50); MCH 27.9 pg (26.0-34.0); MCHC 33.1 g/dL (31.0-37.0); MEAN PLATELET VOLUME 9.7 fL (7.4-10.4); MONOCYTES 11.9 % (2-11); NEUTROPHILS 72.3 % (40-80); PLATELET COUNT 154 10x3/uL (130-400); RDW 14.2 % (11.5-14.5)
[2018-12-23 07:13] LABS: HEMATOCRIT 38.1 % (36.0-48.0); HEMOGLOBIN 12.6 g/dL (12-16); MCV 84.5 fL (80.0-100.0); RBC 4.51 10x6/uL (4.00-5.40); WBC 7.8 10x3/uL (4.8-10.8)
[2018-12-23 07:17] LABS: ALBUMIN 3.1 g/dL (3.4-5.0); ANION GAP 13.4 mmol/L (8-16); BILIRUBIN - TOTAL 0.33 mg/dL (0.2-1.3); CALCIUM 8.8 mg/dL (8.5-10.1); CARBON DIOXIDE 27.9 mmol/L (21.0-32.0); CREATININE - SERUM 1.2 mg/dL (0.6-1.3); MAGNESIUM - SERUM 1.7 mg/dL (1.8-2.4); PHOSPHOROUS 3.2 mg/dL (2.5-4.9); POTASSIUM - SERUM 3.3 mmol/L (3.5-5.1); PROTEIN - SERUM 6.7 g/dL (6.4-8.2); VANCOMYCIN - RANDOM 8.2 ug/mL (10.0-20.0)
--- NOTE | 2018-12-23 07:40 | NUR ---
BEDSIDE REPORT RECIEVED. PATIENT IN BED WITH IV INTACT. COMPLAINTS OF HEAD AND NECK PAIN. WILL SEE IF SHE CAN HAVE ANYTHING FOR PAIN. GARCIA INTACT. CALL LIGHT WITHIN REACH.
[2018-12-23 08:59] VITALS: BP 150/68
[2018-12-23] MEDS ORDERED: GLUCOPHAGE500 MG PO (10:59)
[2018-12-23] MEDS ORDERED: FLORAJEN3 CAPS460 MG PO (10:59)
[2018-12-23] MEDS ORDERED: CLEOCIN HCL300 MG PO (11:00)
--- NOTE | 2018-12-23 11:15 | NUR ---
PATIENT GARCIA CLAMPED AT THIS TIME FOR BLADDER TRAINING. EXPLAINED TO PATIENT THAT WHEN SHE FEELS LIKE SHE NEEDS TO VOID TO LET ME KNOW AND I WILL UNCLAMP/ VERBALIZED UNDERSTANDING. IV INTACT. CALL LIGHT WITHIN REACH.
[2018-12-23 12:38] VITALS: BP 156/75
--- NOTE | 2018-12-23 12:50 | NUR ---
PATIENT STATED SHE NEEDED TO VOID, GARCIA UNCLAMPED AT THIS TIME.
--- NOTE | 2018-12-23 13:50 | NUR ---
PATIENT GARCIA RECLAMPED AT THIS TIME FOR BLADDER TRAINING.
--- NOTE | 2018-12-23 15:33 | MORECARE ---
CASE MANAGEMENT DISCHARGE SUMMARY PATIENT: JAMIE ANTOINE UNIT: [id number] ADM DATE: 12/21/18 AGE: 78 : 39 SEX: F ROOM/BED: D.2215 AUTHOR: ARSENIO MORGAN PHYSICIAN: REFERRING PHYSICIAN: JONA PÉREZ MD DATE OF SERVICE: 12/23/18 Discharge Plan Patient Name: JAMIE ANTOINE Facility: [facility]:[place] : 1940 Planned Disposition: Home Anticipated Discharge Date: Discharge Date: Expected LOS: Initial Reviewer: [email or web address] Initial Review Date: 12/21/2018 Generated: 12/23/18 4:32 pm Comments DCP- Discharge Planning Updated by [email or web address]: Patricia Gandara on 12/23/18 2:[address] Patient Name: JAMIE ANTOINE Admission Status: Elective Accout number: [id number] Admission Date: 12-21-2018 : 1940 Admission Diagnosis:CELLULITIS OF RIGHT LOWER LIMB Attending: JONA PÉREZ Current LOS: 2 Anticipated DC Date: Planned Disposition: Home Primary Insurance: [facility] [employer] Discharge Planning Comments: CM MET WITH PATIENT TO ASSESS DISCHARGE PLANNING NEEDS, SHE DENIES ANY NEEDS AT THIS TIME, HER WILL BE HER [place] HOME. SHE WILL HAVE HOUSE CALLS AND DID NOT WANT HOME HEALTH. CM TO FOLLOW NEEDED Labor Service Representative: Patricia Gandara Patient Name: JAMIE ANTOINE Page [phone] at 1533 All edits/amendments must be made on the electronic document DICTATION DATE: 12/23/18 1532 ILLUSTRATOR SET: ALHJAI 12/23/18 1532 RPT#: [id number] DC DATE: STATUS: ADM IN [facility] [address] [place] [address] END OF REPORT
--- NOTE | 2018-12-23 15:40 | NUR ---
PATIENT GARCIA UNCLAMPED AND REMOVED AT THIS TIME. WAITING FOR PATIENT TO VOID AND BED DC'D. IV REMOVED AT THIS TIME WITH CATH TIP INTACT. NO COMPLAINTS OR SIGNS OF DISTRESS. CALL LIGHT WITHIN REACH.
--- NOTE | 2018-12-23 16:30 | NUR ---
PATIENT VOIDED 200 MLS X 2 WITH NO PROBLEMS. ASSISTED PATIENT IN DRESSING. GAVE DISCHARGE INSTRUCTIONS. VERBALIZED UNDERSTANDING. FAMILY AT BEDSIDE. WAITING FOR WC TO BE DC'D. CALL LIGHT WITHIN REACH.
--- NOTE | 2018-12-23 16:40 | NUR ---
ASSISTED PATIENT DOWN TO PRIVATE VEHICLE WITH PERSONAL BELONGINGS VIA WC. FAMILY AT SIDE. ASSISTED PATIENT INTO VEHICLE WITH NO PROBLEMS.
--- NOTE | 2018-12-27 10:20 | MORECARE ---
CASE MANAGEMENT DISCHARGE SUMMARY PATIENT: JAMIE ANTOINE UNIT: [id number] ADM DATE: 12/21/18 AGE: 78 : 39 SEX: F ROOM/BED: D.2215 AUTHOR: ARSENIO MORGAN PHYSICIAN: REFERRING PHYSICIAN: JONA PÉREZ MD DATE OF SERVICE: 12/27/18 Discharge Plan Patient Name: JAMIE ANTOINE Facility: [facility]:[place] : 1940 Planned Disposition: Home Anticipated Discharge Date: Discharge Date: 12/23/2018 Expected LOS: Initial Reviewer: [email or web address] Initial Review Date: 12/21/2018 Generated: 12/27/18 11:19 am Comments DCP- Discharge Planning Updated by [email or web address]: Patricia Gandara on 12/23/18 2:[address] Patient Name: JAMIE ANTOINE Admission Status: Elective Accout number: [id number] Admission Date: 12-21-2018 : 1940 Admission Diagnosis:CELLULITIS OF RIGHT LOWER LIMB Attending: JONA PÉREZ Current LOS: 2 Anticipated DC Date: Planned Disposition: Home Primary Insurance: [facility] [employer] Discharge Planning Comments: CM MET WITH PATIENT TO ASSESS DISCHARGE PLANNING NEEDS, SHE DENIES ANY NEEDS AT THIS TIME, 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 SHE WILL HAVE HOUSE CALLS AND DID NOT WANT HOME HEALTH. CM TO FOLLOW NEEDED Family Services Manager: Patricia Gandara Last DP export: 12/23/18 2:33 p Patient Name: JAMIE ANTOINE Page [phone] at 1020 All edits/amendments must be made on the electronic document DICTATION DATE: 12/27/18 1019 CATERING SERVICE MANAGER: ALHAJI 12/27/18 1019 RPT#: [id number] DC DATE:12/23/18 STATUS: DIS IN [facility] [address] [place] [address] END OF REPORT
== END 2018-12-23 16:45 | disposition home or self-care (01) | DRG 637 ==
LOC: D.MS 17:42
PROVIDERS: Family Medicine; ADMIT Family Medicine; ATTEND Family Medicine
DX: E13.628 Other specified diabetes mellitus with other skin complications (principal); G93.41 Metabolic encephalopathy; L03.115 Cellulitis of right lower limb; G93.49 Other encephalopathy; N17.9 Acute kidney failure, unspecified; D64.9 Anemia, unspecified; R44.1 Visual hallucinations; R41.82 Altered mental status, unspecified; I10 Essential (primary) hypertension; I25.10 Atherosclerotic heart disease of native coronary artery without angina pectoris; Z91.81 History of falling